=== PATIENT | male | born 2000 ===

== ENCOUNTER 2021-02-27 00:25 | Inpatient (IN) | payer SELFPAY ==
[2021-02-27] VITALS (87 sets, daily range): BP systolic 122–178; BP diastolic 76–129; PULSE 94–117; RESP 0–35; TEMP 36.2–36.8; O2SAT 91–99; BMI 33.9; BMI 38.1
--- NOTE | 2021-02-27 00:46 | ECG_ITS ---
[facility] Test Date: 2021-02-27 Pat Name: Paulie Johnson Department: Room: ICU10 Gender: Male Claims Adjuster Supervisor: : 2000 Requested By: Papa Maxwell Order Number: [id number] Rosenthal MD: Sudeep Chairez M.D. Measurements Intervals [place] Rate: 97 P: -69 LA: 136 QRS: 60 QRSD: 99 T: 48 QT: 335 QTc: 427 Interpretive Statements ECTOPIC ATRIAL RHYTHM POSSIBLE RIGHT VENTRICULAR CONDUCTION DELAY [RSR (QR) IN V1/V2] No previous ECG available for comparison Electronically Signed On 02-27-2021 16:01:37 CDT by Sudeep Chairez M.D. [email or web address]
--- NOTE | 2021-02-27 00:46 | CTR_ITS ---
PROCEDURE INFORMATION: Exam: CT Head Without Contrast Exam date and time: 02/27/2021 12:58 AM Age: 20 years old Clinical indication: Altered mental status/memory loss; Additional info: AMS TECHNIQUE: Imaging protocol: Computed tomography of the head without contrast. Radiation optimization: All CT scans at this facility use at least one of these dose optimization techniques: automated exposure control; mA and/or kV adjustment per patient size (includes targeted exams where dose is matched to clinical indication); or iterative reconstruction. COMPARISON: No relevant prior studies available. RADIATION DOSE METRICS: Total DLP (mGy-cm): 885.36 FINDINGS: Brain: Normal. No hemorrhage. Unremarkable white matter. No mass effect. Cerebral ventricles: No ventriculomegaly. Paranasal sinuses: Mucosal thickening and fluid is seen within the ethmoidal, sphenoidal and maxillary sinuses bilaterally. Mastoid air cells: Visualized mastoid air cells are well aerated. Bones/joints: Unremarkable. No acute fracture. Soft tissues: Unremarkable. CT/CT head wo con* [id number] IMPRESSION: There are no acute intracranial findings. Radiation Dose CTDIVOL = (mGy): DLP = 885.36 (mGy-cm)
--- NOTE | 2021-02-27 00:46 | XRR_ITS ---
PROCEDURE INFORMATION: Exam: XR Chest Exam date and time: 02/27/2021 12:58 AM Age: 20 years old Clinical indication: Other: Altered mental status, seizure? ; Additional info: AMS TECHNIQUE: Imaging protocol: XR of the chest. Views: 1 view. COMPARISON: No relevant prior studies available. FINDINGS: Lungs: Unremarkable. No consolidation. Pleural spaces: Unremarkable. No pleural effusion. No pneumothorax. Heart/Mediastinum: Unremarkable. No cardiomegaly. Bones/joints: Unremarkable. XR/XR chest 1V portable [id number] IMPRESSION: No acute findings.
[2021-02-27 00:57] LABS: Basophils % 0.3 %; Eosinophils # 0.2 10^3/uL (0.0-0.8); Eosinophils % 3.4 %; Hematocrit 46.3 % (42.0-52.0); Hemoglobin 15.2 g/dL (11.7-16.6); Lymphocytes # 2.2 10^3/uL (0.8-4.8); Lymphocytes % 31.7 %; Mean Corpuscular HGB Conc 32.8 g/dL (30.0-36.0); Mean Corpuscular Hemoglobin 30.7 pg (28.0-34.0); Mean Corpuscular Volume 93.5 fL (80-94); Mean Platelet Volume 10.5 fL (7.4-10.4); Monocytes # 0.7 10^3/uL (0.2-0.9); Monocytes % 9.7 %; Neutrophils # 3.73 10^3/uL (1.8-7.7); Neutrophils % 54.6 %; Nucleated Red Blood Cells % 0 %; Platelet Count 244 10^3/cmm (130-400); Red Blood Count 4.95 10^6/uL (4.1-5.3); Red Cell Distribution Width 11.7 % (12.1-15.1); White Blood Count 6.8 10^3/uL (4.0-10.0)
--- NOTE | 2021-02-27 00:57 | W.ED.AMS ---
HPI - Altered Mental Status General: Chief Complaint: Altered Mental Status Stated Complaint: ETOH Time Seen by Provider: 02/27/21 00:36 History of Present Illness: HPI narrative: 20-year-old male known to have been drinking, was picked up by police between 11 and 11:30 PM. He evidently ran from them. He was arrested and taken by police cruiser to longterm. He evidently was intoxicated, but conversant with the officer all the way to the station, but either on or shortly after arrival fell over, became unresponsive, and had several jerks thought to be a possible seizure. He has been unresponsive since that time. He is reported to have never stopped breathing or lose a pulse. He presents eyes closed, not answering question. Arousable to noxious stimuli. MD complaint: altered mental status and intoxication Onset (ago): hour(s) Time: 23:00 Timing confirmed by: other Consistency of symptoms: Unknown Context: alcohol abuse (By report) Associated symptoms: Reports other Review of Systems General: Reports: ROS unobtainable due to medical condition PFS ED PFSH: Medical History (Updated 02/27/21 @ 05:27 by Papa Daniels DO) Alcohol abuse HIV (human immunodeficiency virus infection) Polysubstance abuse Surgical History (Updated 02/27/21 @ 05:04 by Liyah Corrales MD) No pertinent past surgical history Family History (Updated 02/27/21 @ 05:04 by Liyah Corrales MD) Other No significant active problems Social History (Updated 02/27/21 @ 05:05 by Liyah Corrales MD) Smoking and tobacco status: current every day smoker Alcohol intake: current Substance/Drug Use: current Substance/Drug use type: Methamphetamine Household members: spouse Housing: House Physical Exam Const: EXAM LIMITATIONS: altered mental status and behavioral limitations GENERAL APPEARANCE: odor of alcohol detected NUTRITIONAL APPEARANCE: overweight ORIENTATION/CONSCIOUSNESS: Yes patient obtunded Eye: COMMON NORMALS: Equal, round and reactive pupils present GENERAL EYE: appearance normal, both eyes and all related structures PUPIL: Yes Equal, round and reactive pupils present Chest: COMMONS NORMALS: normal inspection of the chest Resp: COMMON NORMALS: normal respiratory effort, No use of accessory muscles and clear to auscultation bilaterally AUSCULTATION: clear to auscultation bilaterally Cardio: COMMON NORMALS: regular rate, regular rhythm and No murmurs present (Cardio) RATE: regular rate RHYTHM: regular rhythm GI: COMMON NORMALS: Normal to inspection, nondistended, normoactive bowel sounds present and Soft to palpation PALPATION: Yes Soft to palpation Extremity: COMMON NORMALS: capillary refill normal and no clubbing, cyanosis or edema NARRATIVE EXTREMITY EXAM: Small scrapes/abrasions to bilateral lower extremities Neuro: MENA COMA SCALE: document GCS findings [place] coma scale eye opening: None M[place] coma scale verbal response: Sounds [place] coma scale motor response: Localising [place] coma scale total score: 8 SENSORIUM/ORIENTATION: Yes obtunded COMATOSE PATIENT: response to noxious stimuli present Course Vital Signs: Vital signs: Vital Signs Temperature 97.2 F L 02/27/21 04:27 Pulse Rate 94 02/27/21 04:27 Respiratory Rate 18 02/27/21 04:27 Blood Pressure 153/99 02/27/21 04:27 Pulse Oximetry 97 02/27/21 04:27 MDM - Altered Mental Status MDM Narrative: Medical decision making narrative: 20-year-old intoxicated male who may or may not have had a withdrawal seizure. Nevertheless, he has not come back to baseline his pupils were widened, not small, therefore Narcan was not given. He is drug screen was negative for opioids, but positive for amphetamines. Head CT is negative. Other laboratory besides alcohol is essentially benign. His cervical spine CT is negative as well. His chest x-ray is negative. Because of his significant unresponsiveness, with continued GCS of 8, he will go to the ICU for observation and symptomatic treatment. Of note, during CT scanning, he was given 2 mg of Versed IV due to rhythmic type muscle jerks that were exhibited during CT. He seemed to recover from those quickly. Lab Data: Labs: Lab Results 02/27/21 02/27/21 02/27/21 Range/Units 00:34 00:34 01:10 WBC 6.8 (4.0-10.0) 10^3/ uL RBC 4.95 (4.1-5.3) 10^6/u L Hgb 15.2 (11.7-16.6) g/dL Hct 46.3 (42.0-52.0) % MCV 93.5 (80-94) fL MCH 30.7 (28.0-34.0) pg MCHC 32.8 (30.0-36.0) g/dL RDW 11.7 L (12.1-15.1) % Plt Count 244 (130-400) 10^3/c mm MPV 10.5 H (7.4-10.4) fL Neut % (Auto) 54.6 % Lymph % (Auto) 31.7 % [place] % (Auto) 9.7 % Eos % (Auto) 3.4 % Baso % (Auto) 0.3 % Neut # (Auto) 3.73 (1.8-7.7) 10^3/u L Lymph # (Auto) 2.2 (0.8-4.8) 10^3/u L [place] # (Auto) 0.7 (0.2-0.9) 10^3/u L Eos # (Auto) 0.2 (0.0-0.8) 10^3/u L Baso # (Auto) 0.0 (0.0-0.1) 10^3/u L Nucleated RBC % (a uto) 0 % Nucleated RBCs # 0.0 /100WBC Specimen Type Arterial Sample Site Radial, left ABG pH 7.33 L (7.35-7.45) ABG pCO2 46.0 H (35-45) mmHg ABG pO2 73.2 L (80.0-100.0) mmH g ABG HCO3 24.4 (22-26) mmol/L ABG Base Excess -1.8 (-2.0-2.0) mmol/ L Nicolas Test Pos Hematocrit 46.1 (42-52) % O2 Delivery Device None FiO2 21.0 % Java Architect ID [id number] Sodium 145 (136-145) mmol/L Potassium 4.1 (3.5-5.1) mmol/L Chloride 107 (98-107) mmol/L Carbon Dioxide 26 (22-29) mmol/L Anion Gap 16.1 (5-19) BUN 7 (6-20) mg/dL Creatinine 1.0 (0.7-1.2) mg/dL GFR Calculation 93.4 (90-130) mL/min Glucose 95 (65-115) mg/dL Calculated Osmolal ity 298 H (285-295) mOsm/k g Calcium 8.6 (8.5-10.5) mg/dL Magnesium 2.1 (1.7-2.3) mg/dL Total Bilirubin 0.3 (0.15-1.2) mg/dL AST 30 (0-40) U/L ALT 82 H (0-41) U/L Alkaline Phosphata se 86 (40-130) IU/L Total Protein 6.9 (6.6-8.7) g/dL Albumin 4.6 (3.5-5.2) g/dL Globulin 2.3 (1.3-4.6) g/dL Urine Color (Yellow) Urine Appearance (CLEAR) Urine pH (5-7) Ur Specific Gravit y (1.005-1.030) Urine Protein (Negative) Urine Glucose (UA) (Normal) Urine Ketones (Negative) Urine Blood (Negative) Urine Nitrate (Negative) Urine Bilirubin (Negative) Urine Urobilinogen (Negative) mg/dL Ur Leukocyte [place] ase (Negative) Salicylates < 0.3 L (3-10) mg/dL Urine Opiates Scre en (Negative) ng/mL Acetaminophen < 5.0 L (10-30) ug/mL Ur Barbiturates Sc reen (Negative) ng/mL Ur Phencyclidine S crn (Negative) ng/mL Ur Amphetamines Sc reen (Negative) ng/mL U Benzodiazepines Scrn (Negative) ng/mL Urine Cocaine Scre en (Negative) ng/mL U Marijuana (THC) Screen (Negative) ng/mL Ethyl Alcohol 135 H (0-10) mg/dL 02/27/21 02/27/21 Range/Units 01:19 01:19 WBC (4.0-10.0) 10^3/ uL RBC (4.1-5.3) 10^6/u L Hgb (11.7-16.6) g/dL Hct (42.0-52.0) % MCV (80-94) fL MCH (28.0-34.0) pg MCHC (30.0-36.0) g/dL RDW (12.1-15.1) % Plt Count (130-400) 10^3/c mm MPV (7.4-10.4) fL Neut % (Auto) % Lymph % (Auto) % [place] % (Auto) % Eos % (Auto) % Baso % (Auto) % Neut # (Auto) (1.8-7.7) 10^3/u L Lymph # (Auto) (0.8-4.8) 10^3/u L [place] # (Auto) (0.2-0.9) 10^3/u L Eos # (Auto) (0.0-0.8) 10^3/u L Baso # (Auto) (0.0-0.1) 10^3/u L Nucleated RBC % (a uto) % Nucleated RBCs # /100WBC Specimen Type Sample Site ABG pH (7.35-7.45) ABG pCO2 (35-45) mmHg ABG pO2 (80.0-100.0) mmH g ABG HCO3 (22-26) mmol/L ABG Base Excess (-2.0-2.0) mmol/ L Nicolas Test Hematocrit (42-52) % O2 Delivery Device FiO2 % Java Architect ID Sodium (136-145) mmol/L Potassium (3.5-5.1) mmol/L Chloride (98-107) mmol/L Carbon Dioxide (22-29) mmol/L Anion Gap (5-19) BUN (6-20) mg/dL Creatinine (0.7-1.2) mg/dL GFR Calculation (90-130) mL/min Glucose (65-115) mg/dL Calculated Osmolal ity (285-295) mOsm/k g Calcium (8.5-10.5) mg/dL Magnesium (1.7-2.3) mg/dL Total Bilirubin (0.15-1.2) mg/dL AST (0-40) U/L ALT (0-41) U/L Alkaline Phosphata se (40-130) IU/L Total Protein (6.6-8.7) g/dL Albumin (3.5-5.2) g/dL Globulin (1.3-4.6) g/dL Urine Color Yellow (Yellow) Urine Appearance Clear (CLEAR) Urine pH 5 (5-7) Ur Specific Gravit y 1.015 (1.005-1.030) Urine Protein Neg (Negative) Urine Glucose (UA) Norm (Normal) Urine Ketones Negative (Negative) Urine Blood Neg (Negative) Urine Nitrate Negative (Negative) Urine Bilirubin Neg (Negative) Urine Urobilinogen 1 H (Negative) mg/dL Ur Leukocyte [place]ore[place] ase Negative (Negative) Salicylates (3-10) mg/dL Urine Opiates Scre en Negative (Negative) ng/mL Acetaminophen (10-30) ug/mL Ur Barbiturates Sc reen Negative (Negative) ng/mL Ur Phencyclidine S crn Negative (Negative) ng/mL Ur Amphetamines Sc reen Positive H (Negative) ng/mL U Benzodiazepines Scrn Negative (Negative) ng/mL Urine Cocaine Scre en Negative (Negative) ng/mL U Marijuana (THC) Screen Negative (Negative) ng/mL Ethyl Alcohol (0-10) mg/dL Discharge Plan Discharge Patient Disposition: Admitted As Inpatient Admit Provider: Liyah Corrales Clinical Impression: Altered mental status Qualifiers: Altered mental status type: stupor Qualified Code(s): R40.1 - Stupor Alcoholic intoxication Qualifiers: Complication of substance-induced condition: uncomplicated Qualified Code(s): F10.920 - Alcohol use, unspecified with intoxication, uncomplicated Condition: Serious Coding Level of Care Code ED Head Refrigerating Engineer for Humberto Fwwellington Exam Comprehensive
[2021-02-27 01:04] LABS: Acetaminophen < 5.0 ug/mL (10-30); Alanine Aminotransferase 82 U/L (0-41); Albumin Level 4.6 g/dL (3.5-5.2); Alcohol Level 135 mg/dL (0-10); Alkaline Phosphatase 86 IU/L (40-130); Anion Gap 16.1 (5-19); Aspartate Amino Transferase 30 U/L (0-40); Blood Urea Nitrogen 7 mg/dL (6-20); Calcium 8.6 mg/dL (8.5-10.5); Carbon Dioxide 26 mmol/L (22-29); Chloride 107 mmol/L (98-107); Creatinine Clr Calc Pharmacy 150.6454; Globulin 2.3 g/dL (1.3-4.6); Glomerular Filtration Rate 93.4 mL/min (90-130); Glucose 95 mg/dL (65-115); Osmolality Calculated 298 mOsm/kg (285-295); Potassium 4.1 mmol/L (3.5-5.1); Salicylate < 0.3 mg/dL (3-10); Sodium 145 mmol/L (136-145); Total Bilirubin 0.3 mg/dL (0.15-1.2); Total Protein 6.9 g/dL (6.6-8.7)
[2021-02-27] MEDS: sodium chloride 0.9% 1,000 ML 999 ML IV (01:04)
[2021-02-27 01:05] LABS: Magnesium 2.1 mg/dL (1.7-2.3)
--- NOTE | 2021-02-27 01:16 | CTR_ITS ---
PROCEDURE INFORMATION: Exam: CT Chest Without Contrast; Diagnostic Exam date and time: 02/27/2021 1:26 AM Age: 20 years old Clinical indication: Injury or trauma; Fall; Blunt trauma (contusions or hematomas); Injury details: Possible right side trauma, altered mental status, seizure? ; Additional info: Altered mental status, injuries TECHNIQUE: Imaging protocol: Diagnostic computed tomography of the chest without contrast. Radiation optimization: All CT scans at this facility use at least one of these dose optimization techniques: automated exposure control; mA and/or kV adjustment per patient size (includes targeted exams where dose is matched to clinical indication); or iterative reconstruction. COMPARISON: CR (CHEST, ) 02/27/2021 12:59 AM RADIATION DOSE METRICS: Total DLP (mGy-cm): 955.51 FINDINGS: Lungs: Unremarkable. No consolidation. No masses. Pleural spaces: Unremarkable. No pneumothorax. No pleural effusion. Heart: Unremarkable. No cardiomegaly. No pericardial effusion. Aorta: Unremarkable. No aortic aneurysm. Lymph nodes: Unremarkable. No enlarged lymph nodes. Bones/joints: Unremarkable. No acute fracture. Soft tissues: Unremarkable. CT/CT chest con [id number] IMPRESSION: No acute findings. Radiation Dose CTDIVOL = (mGy): DLP = 955.51 (mGy-cm)
--- NOTE | 2021-02-27 01:16 | CTR_ITS ---
PROCEDURE INFORMATION: Exam: CT Cervical Spine Without Contrast Exam date and time: 02/27/2021 1:26 AM Age: 20 years old Clinical indication: Other: Altered mental status, seizure? TECHNIQUE: Imaging protocol: Computed tomography images of the cervical spine without contrast. Radiation optimization: All CT scans at this facility use at least one of these dose optimization techniques: automated exposure control; mA and/or kV adjustment per patient size (includes targeted exams where dose is matched to clinical indication); or iterative reconstruction. COMPARISON: No relevant prior studies available. RADIATION DOSE METRICS: Total DLP (mGy-cm): 894.45 FINDINGS: Bones/joints: No acute fracture. Normal alignment. Discs/Spinal canal/Neural foramina: No significant disc protrusion. No severe spinal canal stenosis. No significant neural foraminal narrowing. Lungs: Lung apices are normal. Soft tissues: Unremarkable. CT/CT cervical spin wo con* [id number] IMPRESSION: No acute findings. Radiation Dose CTDIVOL = (mGy): DLP = 894.45 (mGy-cm)
[2021-02-27 01:19] LABS: ABG PH Result 7.33 (7.35-7.45); Arterial Blood Gas Hematocrit 46.1 % (42-52); Base Excess ABG -1.8 mmol/L (-2.0-2.0); Blood Gas Allen Test Pos; Blood Gas Sample Site Radial, left; Blood Gas Sample Type Arterial; HCO3 ABG 24.4 mmol/L (22-26); PO2 ABG 73.2 mmHg (80.0-100.0)
[2021-02-27 01:26] LABS: Add Urine Microscopic? NO; Charge for UA Resulting for Rev
[2021-02-27 01:39] LABS: Bilirubin Urine Neg (Negative); Blood Urine Neg (Negative); Glucose Urine UA Norm (Normal); Ketones Urine Negative (Negative); Leukocyte Esterase Urine Negative (Negative); Nitrate Urine Negative (Negative); Protein Urine Neg (Negative); Specific Gravity, Urine 1.015 (1.005-1.030); Urine Appearance Clear (CLEAR); Urine Color Yellow (Yellow); Urobilinogen Urine 1 mg/dL (Negative); pH Urine 5 (5-7)
[2021-02-27] MEDS: midazolam 1 mg/mL INJ 2 mL 2 MG IVP (01:45)
[2021-02-27 01:48] LABS: Amphetamines Screen Urine Positive (Negative); Barbiturates Screen Urine Negative (Negative); Benzodiazepines Screen Urine Negative (Negative); Cocaine Screen Urine Negative (Negative); Opiate Screen Urine Negative (Negative); PCP Screen Urine Negative (Negative); THC Screen Urine Negative (Negative)
--- NOTE | 2021-02-27 03:13 | P.HP_ITS ---
Providers/Chief Complaint Chief Complaint: ETOH History of Present Illness Paulie Johnson is a 20 year old male who has history of alcohol abuse, HIV positive, polysubstance abuse presented via EMS from police station with concern of breakthrough seizures. EMS told the ER physician that, noticed that he has been drinking a lot for last few days, she also witnessed amphetamine drug abuse, duplicator punch operator were called on him because of his bizarre behavior, reportedly he tried to run from the duplicator punch operator, eventually he was caught and was brought to the police station. At the police station he threw himself on the floor and started shaking, duplicator punch operator called EMS for concern of breakthrough seizures, on arrival in the ER ammonia salt was used and patient was able to show some withdrawal response, GCS was 8, he was hemodynamically stable other than hypertension, CBC, BMP unremarkable U tox positive for methamphetamine, alcohol level 135. He was sent to the CT scanner for imaging of chest, cervical spine and head, on his way back he started showing rhythmic twitching of his extremities for which he received 2 mg of Ativan, ammonia aromatic salt was used again to rule out functional seizures, this time he was able to withdraw his head quicker than before. However at the time of my evaluation his GCS was 8, he was not opening his eyes to painful stimuli however he was able to grab my hand to painful sternal rub. There is no emergency contact information. This history has been taken from the collaterals Review of Systems General: Reports: ROS unobtainable due to medical condition (Received Ativan, delirium) Medications/Allergies Allergies Allergy/AdvReac Type Severity Reaction Status Date / Time Unable to Assess Allergy Unverified 02/27/21 00:29 PFSH Acute PFSH: Medical History (Updated 02/27/21 @ 05:04 by Liyah Corrales MD) Alcohol abuse HIV (human immunodeficiency virus infection) Polysubstance abuse Surgical History (Updated 02/27/21 @ 05:04 by Liyah Corrales MD) No pertinent past surgical history Family History (Updated 02/27/21 @ 05:04 by Liyah Corrales MD) Other No significant active problems Social History (Updated 02/27/21 @ 05:05 by Liyah Corrales MD) Smoking and tobacco status: current every day smoker Alcohol intake: current Substance/Drug Use: current Substance/Drug use type: Methamphetamine Household members: spouse Housing: House Vitals/I&O/Wt Last Vital Signs Temp 97.4 F L 02/27/21 00:29 Pulse 100 02/27/21 02:35 Resp 19 H 02/27/21 02:35 BP 139/80 02/27/21 02:35 Pulse Ox 96 02/27/21 02:35 02/26/21 02/26/21 02/27/21 14:59 22:59 06:59 Intake Total 1000 / 1000 Balance 1000 / 1000 Weight last 48 hrs Weight 113.398 kg Physical Exam Narrative: EXAM NARRATIVE: Young male, morbidly obese, GCS 8, Able to protect airway saturating well 94% on room air No tongue bite signs noted Status post Ativan, neuro exam limited, patient was resisting opening of his eyes, pupillary exam was limited, he was able to move all of his extremities to painful stimuli S1, S2 sinus tachycardia No murmur appreciated no signs of heart failure Abdomen central obesity, soft, mild hyperemia left lower quadrant No joint swelling No cellulitis Bilateral breath sounds no audible stridor or wheezing Hyperemia noticed around elbows, upper and lower extremity Lower extremity no edema gangrene or ulcer Data : 02/27/21 00:34 02/27/21 00:34 A&P Assessment and plan (1) Breakthrough seizure: Status: Acute (2) Acute delirium: Status: Acute (3) Polysubstance abuse: Status: Acute (4) Alcohol abuse: Status: Acute Additional A&P Information Polysubstance with abuse alcohol intoxication Concern for alcohol-related withdrawal Start [facility] protocol Received 2 mg of Ativan, concern for functional seizures as well as he responded well to aromatic ammonia Admit to ICU, current GCS 8 able to protect airways, threshold to intubate will be low, no active emesis, able to protect airways, normal saturation on room air No signs of stroke or meningitis We will check prolactin level and TSH Start normal saline U tox positive for methamphetamine, alcohol level 135 CT chest cervical spine and head unremarkable Hypertension most likely related to polysubstance abuse We will keep him n.p.o. Full code DVT prophylaxis Lovenox Attestations Medical Necessity Statement*: Anticipating stay in the hospital because more than 2 midnights for breakthrough seizures, alcohol intoxication polysubstance abuse Time Spent in Patient Care: 30mins Coding Level of Care Code Acute Team Manager for Nadineg Fwd Diagnoses Breakthrough seizure G40.919 Acute delirium R41.0 Polysubstance abuse F19.10 Alcohol abuse F10.10
--- NOTE | 2021-02-27 04:53 | PC.NURSE ---
Patient arrived to ICU at 0420. Patient is very sleepy and not responding to questions. Does respond to painful stimuli. Patient had several ticks on body, were removed upon entering ICU. Continue care.
[2021-02-27] MEDS: enoxaparin 40 mg/0.4 mL Syringe SUBCUT (05:11)
[2021-02-27] MEDS: dextrose 5%-sod chloride 0.45% 1,000 ML 75 ML IV (05:13)
[2021-02-27 05:24] LABS: ABG PCO2 47.6 mmHg (35-45); ABG PH Result 7.34 (7.35-7.45); Arterial Blood Gas Hematocrit 46.4 % (42-52); Base Excess ABG -0.5 mmol/L (-2.0-2.0); Blood Gas Sample Type Arterial; HCO3 ABG 25.8 mmol/L (22-26); PO2 ABG 70.2 mmHg (80.0-100.0)
[2021-02-27 05:25] LABS: Blood Gas Operator Identificat JB; Blood Gas Sample Site Brachial, right; Oxygen Device ROOM AIR
[2021-02-27 07:09] LABS: Prolactin 9.79 ng/mL (4.0-15.2); Thyroid Stimulating Hormone 0.58 uIU/mL (0.27-4.20)
[2021-02-27 09:05] LABS: Ammonia 41 umol/L (16-60)
[2021-02-27] MEDS: multivitamin therapeutic Tablet 1 TAB PO (09:25)
[2021-02-27] MEDS: folic acid 1 mg Tablet PO (09:25)
[2021-02-27] MEDS: thiamine 100 mg Tablet PO (09:25)
[2021-02-27 09:52] LABS: HIV 1 & 2 Antibody Non-Reactive (Non-Reactiv); HIV 1 & 2 Antigen Non-Reactive (Non-Reactiv)
[2021-02-27 10:03] LABS: Rapid Plasma Reagin Syphilis Nonreactive (Nonreactive)
--- NOTE | 2021-02-27 10:10 | PC.PHAR ---
pt states he takes no rx or otc medications except for the pt states he had a proair inhaler and lost it 6 months ago-pt states he thinks he filled at [facility] in [facility] states they havent filled for the pt before-pt states he has been using other peoples inhalers and is unsure what they were
--- NOTE | 2021-02-27 14:49 | PM.DCS ---
Discharge Providers Date of Admission: 02/27/21 03:22 Date of Discharge: February 27, 2021 Attending Provider at Admission: Liyah Corrales MD Attending Provider at Discharge: Cy Nunez MD Diagnoses at Discharge Discharge Diagnosis (1) Breakthrough seizure: Status: Acute (2) Acute delirium: Status: Acute (3) Polysubstance abuse: Status: Acute (4) Alcohol abuse: Status: Acute Reason for Visit Reason for Visit: ETOH Hospital Course Hospital Course This is a 20-year-old male this is a 20-year-old male with a past medical history of alcohol abuse, polysubstance abuse who presents to [facility] due to concerns for breakthrough seizures Patient was admitted to [facility] for concerns for breakthrough seizures, did receive ammonia salts and Ativan during in the emergency room, GCS was 8, hemodynamically stable, alcohol level is 135, U tox positive for methamphetamines, he underwent extensive imaging which was relatively unremarkable. Patient was monitored in ICU, he slowly started to wake up, alert oriented x3, answering all questions appropriately, denied suicidal ideation, denied homicidal ideation, denied visual auditory or tactile hallucinations. Denies a history of alcohol withdrawal seizures, denies a history of alcohol withdrawal, denies a history of blacking out, denies chest pain, palpitations, diaphoresis, nausea, vomiting, diarrhea. As patient was doing well, I recommended for him to monitored for another 24 hours as inpatient for alcohol withdrawal, but he is adamant about going home. After discussion of the risks, he voiced understanding, all questions answered, accepted the risks. I have discharged him on a Librium taper, to be used to prevent alcohol withdrawal seizures, if he were to have recurrent seizures or alcohol withdrawal symptoms go to the emergency room. Advised abstain from alcohol. Advised to not mix alcohol with Librium. Discharged with close follow-up with [facility]. Physical Exam Const: COMMON NORMALS: no acute distress and patient oriented x3 Resp: COMMON NORMALS: normal respiratory effort, No retractions, No use of accessory muscles and clear to auscultation bilaterally AUSCULTATION: clear to auscultation bilaterally Cardio: COMMON NORMALS: regular rate, regular rhythm, S1 normal heart sound present and S2 normal heart sound present RATE: regular rate RHYTHM: regular rhythm HEART SOUNDS: S1 normal heart sound present and S2 normal heart sound present GI: COMMON NORMALS: Normal to inspection, nondistended, normoactive bowel sounds present, Soft to palpation and non-tender PALPATION: Yes Soft to palpation Extremity: COMMON NORMALS: no pedal edema Neuro: COMMON NORMALS: patient oriented x3 Discharge Data Data Completed and Pending: Completed Studies During Hospitalization Category Date Time Status CT cervical spin wo con* [id number] Urge nt Cat Scan 02/27/21 01:[address] chest wo con 7 1250 Urgent Cat Scan 02/27/21 01:[address] head wo con* 7 0450 Urgent Cat Scan 02/27/21 00:46 Completed XR chest 1V beata ble [id number] Urgent Exams 02/27/21 00:46 Completed Pending at discharge Category Date Time Status Basic Metabolic P claire AM LABS Lab 02/28/21 04:00 Ordered Complete Blood Co unt w/Auto AM LABS Lab 02/28/21 04:00 Ordered Labs from last 24 hours 02/27/21 02/27/21 02/27/21 08:37 08:37 08:37 WBC RBC Hgb Hct MCV MCH MCHC RDW Plt Count MPV Neut % (Auto) Lymph % (Auto) Pacific % (Auto) Eos % (Auto) Baso % (Auto) Neut # (Auto) Lymph # (Auto) Pacific # (Auto) Eos # (Auto) Baso # (Auto) Nucleated RBC % (a uto) Nucleated RBCs # Specimen Type Sample Site ABG pH ABG pCO2 ABG pO2 ABG HCO3 ABG Base Excess Nicolas Test Hematocrit O2 Delivery Device FiO2 Human Services Case Manager ID Sodium Potassium Chloride Carbon Dioxide Anion Gap BUN Creatinine GFR Calculation Glucose Calculated Osmolal ity Calcium Magnesium Total Bilirubin AST ALT Alkaline Phosphata se Ammonia 41 Total Protein Albumin Globulin TSH Prolactin Urine Color Urine Appearance Urine pH Ur Specific Gravit y Urine Protein Urine Glucose (UA) Urine Ketones Urine Blood Urine Nitrate Urine Bilirubin Urine Urobilinogen Ur Leukocyte Lorena ase Salicylates Urine Opiates Scre en Acetaminophen Ur Barbiturates Sc reen Ur Phencyclidine S crn Ur Amphetamines Sc reen U Benzodiazepines Scrn Urine Cocaine Scre en U Marijuana (THC) Screen Ethyl Alcohol RPR Nonreactive HIV 1&2 Ab & HIV 1 Ag Non-reactive HIV 1&2 Antibody Non-reactive 02/27/21 02/27/21 02/27/21 05:10 01:19 01:19 WBC RBC Hgb Hct MCV MCH MCHC RDW Plt Count MPV Neut % (Auto) Lymph % (Auto) Pacific % (Auto) Eos % (Auto) Baso % (Auto) Neut # (Auto) Lymph # (Auto) Pacific # (Auto) Eos # (Auto) Baso # (Auto) Nucleated RBC % (a uto) Nucleated RBCs # Specimen Type Arterial Sample Site Brachial, right ABG pH 7.34 L ABG pCO2 47.6 H ABG pO2 70.2 L ABG HCO3 25.8 ABG Base Excess -0.5 Nicolas Test N/a Hematocrit 46.4 O2 Delivery Device Room air FiO2 21.0 Human Services Case Manager ID Mark Sodium Potassium Chloride Carbon Dioxide Anion Gap BUN Creatinine GFR Calculation Glucose Calculated Osmolal ity Calcium Magnesium Total Bilirubin AST ALT Alkaline Phosphata se Ammonia Total Protein Albumin Globulin TSH Prolactin Urine Color Yellow Urine Appearance Clear Urine pH 5 Ur Specific Gravit y 1.015 Urine Protein Neg Urine Glucose (UA) Norm Urine Ketones Negative Urine Blood Neg Urine Nitrate Negative Urine Bilirubin Neg Urine Urobilinogen 1 H Ur Leukocyte Lorena ase Negative Salicylates Urine Opiates Scre en Negative Acetaminophen Ur Barbiturates Sc reen Negative Ur Phencyclidine S crn Negative Ur Amphetamines Sc reen Positive H U Benzodiazepines Scrn Negative Urine Cocaine Scre en Negative U Marijuana (THC) Screen Negative Ethyl Alcohol RPR HIV 1&2 Ab & HIV 1 Ag HIV 1&2 Antibody 02/27/21 02/27/21 02/27/21 01:10 00:34 00:34 WBC 6.8 RBC 4.95 Hgb 15.2 Hct 46.3 MCV 93.5 MCH 30.7 MCHC 32.8 RDW 11.7 L Plt Count 244 MPV 10.5 H Neut % (Auto) 54.6 Lymph % (Auto) 31.7 Pacific % (Auto) 9.7 Eos % (Auto) 3.4 Baso % (Auto) 0.3 Neut # (Auto) 3.73 Lymph # (Auto) 2.2 Pacific # (Auto) 0.7 Eos # (Auto) 0.2 Baso # (Auto) 0.0 Nucleated RBC % (a uto) 0 Nucleated RBCs # 0.0 Specimen Type Arterial Sample Site Radial, left ABG pH 7.33 L ABG pCO2 46.0 H ABG pO2 73.2 L ABG HCO3 24.4 ABG Base Excess -1.8 Nicolas Test Pos Hematocrit 46.1 O2 Delivery Device None FiO2 21.0 Human Services Case Manager ID [id number] Sodium Potassium Chloride Carbon Dioxide Anion Gap BUN Creatinine GFR Calculation Glucose Calculated Osmolal ity Calcium Magnesium Total Bilirubin AST ALT Alkaline Phosphata se Ammonia Total Protein Albumin Globulin TSH 0.58 Prolactin 9.79 Urine Color Urine Appearance Urine pH Ur Specific Gravit y Urine Protein Urine Glucose (UA) Urine Ketones Urine Blood Urine Nitrate Urine Bilirubin Urine Urobilinogen Ur Leukocyte Lorena ase Salicylates Urine Opiates Scre en Acetaminophen Ur Barbiturates Sc reen Ur Phencyclidine S crn Ur Amphetamines Sc reen U Benzodiazepines Scrn Urine Cocaine Scre en U Marijuana (THC) Screen Ethyl Alcohol RPR HIV 1&2 Ab & HIV 1 Ag HIV 1&2 Antibody 02/27/21 00:34 WBC RBC Hgb Hct MCV MCH MCHC RDW Plt Count MPV Neut % (Auto) Lymph % (Auto) Pacific % (Auto) Eos % (Auto) Baso % (Auto) Neut # (Auto) Lymph # (Auto) Pacific # (Auto) Eos # (Auto) Baso # (Auto) Nucleated RBC % (a uto) Nucleated RBCs # Specimen Type Sample Site ABG pH ABG pCO2 ABG pO2 ABG HCO3 ABG Base Excess Nicolas Test Hematocrit O2 Delivery Device FiO2 Human Services Case Manager ID Sodium 145 Potassium 4.1 Chloride 107 Carbon Dioxide 26 Anion Gap 16.1 BUN 7 Creatinine 1.0 GFR Calculation 93.4 Glucose 95 Calculated Osmolal ity 298 H Calcium 8.6 Magnesium 2.1 Total Bilirubin 0.3 AST 30 ALT 82 H Alkaline Phosphata se 86 Ammonia Total Protein 6.9 Albumin 4.6 Globulin 2.3 TSH Prolactin Urine Color Urine Appearance Urine pH Ur Specific Gravit y Urine Protein Urine Glucose (UA) Urine Ketones Urine Blood Urine Nitrate Urine Bilirubin Urine Urobilinogen Ur Leukocyte Lorena ase Salicylates < 0.3 L Urine Opiates Scre en Acetaminophen < 5.0 L Ur Barbiturates Sc reen Ur Phencyclidine S crn Ur Amphetamines Sc reen U Benzodiazepines Scrn Urine Cocaine Scre en U Marijuana (THC) Screen Ethyl Alcohol 135 H RPR HIV 1&2 Ab & HIV 1 Ag HIV 1&2 Antibody Vitals: Last Vital Signs Temp 97.2 F L 02/27/21 04:27 Pulse 104 H 02/27/21 14:00 Resp 14 02/27/21 14:00 BP 122/90 02/27/21 14:30 Pulse Ox 95 02/27/21 14:30 Discharge Plan Discharge Patient Disposition: Home Condition: Serious Prescriptions: New folic acid 1 mg Tablet 1 mg PO DAILY 30 Days Qty: 30 RF: 0 Vitamin B-1 (mononitrate) 100 mg Tablet 100 mg PO DAILY 30 Days Qty: 30 RF: 0 Thera 400 mcg Tablet 1 tab PO DAILY 30 Days Qty: 30 RF: 0 chlordiazepoxide HCl 10 mg capsule See Rx Instructions .ROUTE .COMPLEX Qty: 11 RF: 0 Continued ProAir HFA 90 mcg/actuation Hfa Aerosol Inhaler 2 - 3 puff INHALATION Q4H PRN (Reason: Shortness Of Breath) RF: 0 Discharge Orders: Discharge Order (Routine); Ordered 02/27/21 Ordered By: Cy Nunez Referrals: [facility] - DANICA DAVIS, [Staff Physician] - 1 week Discharge Diet: Regular and Cardiac Discharge Activity: Resume usual activity Patient Instructions: Alcoholism, Chlordiazepoxide (By mouth), Thiamine (Vitamin B-1) (By mouth), Folic Acid (By mouth), Alcohol Intoxication (DC), Abuse of Alcohol (DC), Acute Delirium (DC), Alcohol Withdrawal (DC), Opioid Safety Activity Restrictions/Additional Instructions: -Please abstain from alcohol consumption -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
--- NOTE | 2021-02-27 15:09 | PC.NURSE ---
Patient was given all discharge instructions and educated on importance of follow up visits, alcohol withdraw, and medication compliance. Patient stated that his mother was coming to get him. Patient is resting in room and will tell this nurse when his transportation is here.
--- NOTE | 2021-02-27 15:42 | PC.NURSE ---
Patient was discharged at 1530 with pants, shoes, shocks, and a belt. He stated his mom would be there shortly.
--- NOTE | 2021-03-02 16:35 | PC.RESP ---
Smoking Cessation information sent to patient.
== END 2021-02-27 15:30 | disposition home or self-care (01) | DRG 101 ==
LOC: ER 01:10 → ICU 03:34
PROVIDERS: Admitting Provider Internal Medicine; Emergency Provider Emergency Medicine; Visit Provider Family Medicine
DX: G40.919 Epilepsy, unspecified, intractable, without status epilepticus (principal); F10.121 Alcohol abuse with intoxication delirium; B20 Human immunodeficiency virus [HIV] disease; Y90.6 Blood alcohol level of 120-199 mg/100 ml; F15.10 Other stimulant abuse, uncomplicated; F17.210 Nicotine dependence, cigarettes, uncomplicated; I10 Essential (primary) hypertension
CPT/HCPCS: 36600; 70450; 71045; 71250; 72125; 80053; 80306; 80307; 81003; 82140; 82803; 83735; 84146; 84443; 85025; 86592; 87491; 87591; 87806; 93005; 96361; 96372; 96374; 96375; 99285; J1650; J2250; J3411; J7030; J7799